=== PATIENT | female | born 1990 | race Caucasian/White ===

== ENCOUNTER 2023-01-14 21:35 | Emergency (ER) | payer MEDICAID ==
[~2023-01-14] VITALS: Ht 162.6 cm; Wt 72.6 kg
[2023-01-14 21:38] VITALS: BP_SYST 117; PULSE 74; RESP 16; TEMP 98.4
== END 2023-01-15 00:53 | disposition left against medical advice (07) ==
LOC: SED 21:35
DX: R07.9 Chest pain, unspecified (principal); Z53.21 Procedure and treatment not carried out due to patient leaving prior to being seen by health care provider
CPT/HCPCS: 99281